=== PATIENT | female | born 1985 | race African-American/Black ===

== ENCOUNTER 2016-10-15 05:14 | Emergency (ER) | payer MEDICAID, OTHER ==
[~2016-10-15] VITALS: Ht 170.2 cm; Wt 104.0 kg
[2016-10-15] MEDS ORDERED: FAMOTIDINE 20MG TABLET PO ONE (06:30)
[2016-10-15] MEDS ORDERED: PREDNISONE 20MG TABLET PO ONE (06:30)
[2016-10-15 07:01] VITALS: BP 125/63
== END 2016-10-15 07:03 | disposition home or self-care (01) ==
LOC: ER 06:26
DX: T78.1XXA Other adverse food reactions, not elsewhere classified, initial encounter (principal); R22.0 Localized swelling, mass and lump, head; X58.XXXA Exposure to other specified factors, initial encounter; R03.0 Elevated blood-pressure reading, without diagnosis of hypertension; E66.9 Obesity, unspecified; Z68.35 Body mass index [BMI] 35.0-35.9, adult
CPT/HCPCS: 81025; 99283; J7512

== ENCOUNTER 2017-07-12 21:07 | Emergency (ER) | payer MEDICAID ==
[~2017-07-12] VITALS: Ht 170.2 cm; Wt 114.0 kg
[2017-07-12 21:54] VITALS: BP 116/70
== END 2017-07-12 23:05 | disposition home or self-care (01) ==
LOC: ER 22:04
DX: T78.40XA Allergy, unspecified, initial encounter (principal); F17.200 Nicotine dependence, unspecified, uncomplicated; Y92.89 Other specified places as the place of occurrence of the external cause; Z98.890 Other specified postprocedural states
CPT/HCPCS: 99282

== ENCOUNTER 2020-07-11 11:20 | Emergency (ER) | payer MEDICAID ==
[~2020-07-11] VITALS: Ht 170.2 cm; Wt 136.0 kg
[2020-07-11 11:27] VITALS: BP 146/102
[2020-07-11] MEDS ORDERED: BENZ-16 MT (15:22)
== END 2020-07-11 15:56 | disposition home or self-care (01) ==
LOC: ER 11:20
DX: R05 Cough (principal); Z98.890 Other specified postprocedural states
CPT/HCPCS: 71045; 99283

== ENCOUNTER 2022-04-04 20:19 | Emergency (ER) | payer MEDICAID ==
[~2022-04-04] VITALS: Ht 170.2 cm; Wt 129.7 kg
[~2022-04-04 20:19] MED LIST: BENZ-16 MT
[2022-04-04 23:50] LABS: BASOPHILS % 0.2 % (0.0-2.0); EOSINOPHILS % 1.8 % (0.0-5.0); HEMATOCRIT. 36.7 % (36.0-48.0); LYMPHOCYTES % 37.5 % (20.0-50.0); MEAN CORPUSCULAR HEMOGLOBIN 27.8 pg (28.0-32.0); MEAN PLATELET VOLUME 8.6 fl (7.4-10.4); MONOCYTES % 8.7 % (2.0-8.0); NEUTROPHILS % 51.8 % (40.0-76.0); PLATELET 239 x1000/uL (130-400); RED BLOOD CELL COUNT 4.32 mill/uL (4.2-5.4); RED CELL DISTRIBUTION WIDTH 16.5 % (11.6-14.6)
[2022-04-04 23:55] LABS: CHLORIDE 104 mEq/L (98-107)
[2022-04-04 23:57] LABS: INR 0.9; PARTIAL THROMBOPLASTIN TIME 31.4 sec (23.4-31.0); PROTHROMBIN TIME 9.8 sec (9.6-11.0)
[2022-04-05 00:32] LABS: HCG SCREEN NEGATIVE
[2022-04-05 01:40] VITALS: BP 128/58
== END 2022-04-05 01:41 | disposition home or self-care (01) ==
LOC: ER 20:19
DX: R07.89 Other chest pain (principal)
CPT/HCPCS: 36415; 71045; 80053; 84484; 84703; 85025; 93005; 93970; 99285

== ENCOUNTER 2023-09-20 01:46 | Emergency (ER) | payer BC, MEDICAID ==
[~2023-09-20] VITALS: Ht 172.7 cm; Wt 91.0 kg
[2023-09-20 02:00] VITALS: O2SAT 100
[2023-09-20 02:50] LABS: BASOPHILS % 0.3 % (0.0-2.0); EOSINOPHILS % 1.2 % (0.0-5.0); HEMATOCRIT. 33.2 % (36.0-48.0); HEMOGLOBIN. 10.7 g/dL (12.0-16.0); LYMPHOCYTES % 18.2 % (20.0-50.0); MEAN CORPUSCULAR HEMOGLOBIN 27.7 pg (28.0-32.0); MEAN CORPUSCULAR HGB CONC 32.4 g/dL (31.0-37.0); MEAN CORPUSCULAR VOLUME 85.5 fL (81.0-99.0); MEAN PLATELET VOLUME 9.2 fl (7.4-10.4); MONOCYTES % 9.6 % (2.0-8.0); NEUTROPHILS % 70.7 % (40.0-76.0); PLATELET 229 x1000/uL (130-400); RED BLOOD CELL COUNT 3.88 mill/uL (4.2-5.4); RED CELL DISTRIBUTION WIDTH 15.9 % (11.6-14.6); WHITE BLOOD COUNT 8.5 x1000/uL (4.5-11.0)
[2023-09-20 02:57] LABS: CHLORIDE 106 mEq/L (98-107); POTASSIUM 3.9 mEq/L (3.5-5.1); SODIUM 137 mEq/L (136-145)
[2023-09-20 02:58] LABS: CARBON DIOXIDE 24 mEq/L (21-32)
[2023-09-20 02:59] LABS: CALCIUM 9.2 mg/dL (8.7-10.4)
[2023-09-20 03:04] LABS: CREATININE 0.7 mg/dL (0.6-1.0); GLUCOSE 94 mg/dL (70-105); UREA NITROGEN BLOOD 9 mg/dL (9-23)
[2023-09-20] MEDS: SODIUM CHLORIDE 0.9% 1,000 ML IV ONE (03:05)
[2023-09-20] MEDS: ONDANSETRON HCL 4MG/2ML INJ IV ONE (03:12)
[2023-09-20] MEDS: ACETAMINOPHEN 1000MG/100ML 100 ML IV ONE (03:20)
[2023-09-20 03:26] LABS: CLARITY URINE CLOUDY (CLEAR); COLOR URINE YELLOW (YELLOW); GLUCOSE URINE NEGATIVE (NEGATIVE); KETONES URINE TRACE (NEGATIVE); LEUKOCYTE ESTERASE URINE NEGATIVE (NEGATIVE); NITRITE URINE NEGATIVE (NEGATIVE); OCCULT BLOOD URINE NEGATIVE (NEGATIVE); PH URINE 6.5 (4.5-8.0); PROTEIN URINE TRACE (NEGATIVE); SPECIFIC GRAVITY URINE 1.019 (1.005-1.030)
[2023-09-20 03:47] LABS: B-HCG QUANTITATIVE 20351 mIU/mL (<3)
[2023-09-20] MEDS: MAGNESIUM/ALUMINUM HYDROXIDE/SIMETHICONE 30ML UDC PO ONE (04:07)
[2023-09-20 05:10] VITALS: BP 124/67; PULSE 66; RESP 14; TEMP 36.55848; O2SAT 100
[2023-09-20 07:03] LABS: RBC URINE 0-2 /hpf (0-2); SQUAMOUS EPITHELIAL CELL URINE 2+ /lpf (RARE/1+); WBC URINE 0-2 /hpf (0-2)
[2023-09-20 07:04] LABS: BACTERIA URINE TRACE
== END 2023-09-20 06:03 | disposition short-term general hospital (02) ==
LOC: ER 01:46
DX: O26.893 Other specified pregnancy related conditions, third trimester (principal); Z3A.34 34 weeks gestation of pregnancy; R10.13 Epigastric pain; Z00.00 Encounter for general adult medical examination without abnormal findings
CPT/HCPCS: 80048; 81003; 81025; 84702; 85025; 86850; 86900; 86901; 36415; 76805; 96365; 96375; 99285; J2405; J7030; Z7610; J0131